=== PATIENT | female | born 1960 | race Caucasian/White ===

== ENCOUNTER 2019-12-17 12:30 | Outpatient (RCR) | payer BC | END 2019-12-31 | disposition home or self-care (01) | LOC: WSPT | DX: C50.811 Malignant neoplasm of overlapping sites of right female breast (principal) ==

== ENCOUNTER 2020-04-15 13:00 | Outpatient (RCR) | payer BC | END 2020-04-21 | disposition home or self-care (01) | LOC: WSPT | DX: C50.811 Malignant neoplasm of overlapping sites of right female breast (principal) ==

== ENCOUNTER 2020-07-01 14:45 | Outpatient (RCR) | payer BC | END 2020-07-18 14:34 | disposition home or self-care (01) | LOC: WSPT 14:45 | DX: C50.911 Malignant neoplasm of unspecified site of right female breast (principal); Z90.13 Acquired absence of bilateral breasts and nipples ==